=== PATIENT | male | born 2000 | race Caucasian/White ===

== ENCOUNTER 2023-06-07 17:30 | Emergency (ER) | payer OTHER ==
[~2023-06-07] VITALS: Ht 167.6 cm; Wt 85.5 kg
[2023-06-07 17:38] VITALS: BP 148/88; TEMP 98.3
[2023-06-07 18:14] VITALS: PULSE 91
[2023-06-07] MEDS ORDERED: Ibuprofen 400 MG TAB PO ONE (18:15)
== END 2023-06-07 18:14 | disposition home or self-care (01) ==
LOC: COL.ER 17:30
DX: L05.91 Pilonidal cyst without abscess (principal)